=== PATIENT | female | born 1990 | race Caucasian/White ===

== ENCOUNTER 2022-07-17 18:14 | Inpatient (IN) ==
[2022-07-17] MEDS ORDERED: NS 1,000 ML IV 1,000 ML IV ONE ×3 (19:04→22:58)
--- NOTE | 2022-07-17 19:04 | DR.GENAD ---
HPI <Donnie Mclaughlin - Last Filed: 07/22/22 08:27> Time Seen Time Seen by Provider: 07/17/22 19:04 Complaint/Symptoms Chief Complaint Doctors Comments: 31 y/o female, ill since yesterday. Was exposed to flu recently. Started with sore throat, generalized body aches yesterday. + worsened today. + nausea, vomiting, + weakness, decreased urination. Having diffuse pain. + lightheaded, weak, dizziness. Nurses notes reviewed Nurses Notes Review: Yes Source History Provided: Patient Mode of Arrival Mode of Arrival: Ambulatory PMH <Donnie Mclaughlin - Last Filed: 07/22/22 08:27> PMH Past Medical History: Anemia Past Medical History Comment: distant h/o drug abuse Past Surgical History: Yes Family History Family Medical History: Cancer Social History Does patient currently use any type of tobacco product: No Alcohol Use: None Do you use any recreational Drugs:: No (hx) ROS <Donnie Mclaughlin - Last Filed: 07/22/22 08:27> Review of Systems Constitutional: Chills, Fever, Malaise and Weakness Eyes: No Symptoms Reported ENTM: Nose Congestion and Throat Pain Respiratoy: No Symptoms Reported Cardiovascular: No Symptoms Reported Gastrointestinal/Abdominal: Nausea and Vomiting Genitourinary: Other (decreased urination) Neurological: Weakness and Dizziness Musculoskeletal: Muscle Pain Integumentary: No Symptoms Reported Hematologic/Lymphatic: No Symptoms Reported Psychiatric: No Symptoms Reported All Other Systems: Reviewed and Negative PE <Donnie Mclaughlin - Last Filed: 07/22/22 08:27> Vital Signs Vitals: Temperature 98.7 F Pulse Rate 103 Respiratory Rate 16 Blood Pressure 81/41 O2 Sat by Pulse Oximetry 99 General General Appearance: Alert and In No Apparent Distress Eyes Eye exam: PERRL, EOMI and Other (+ pale palpebral conjunctivae) ENT ENT Exam: Other (dry tongue) Neck Neck Exam: Normal Inspection and Full ROM; negative Tenderness Respiratory Respiratory Exam: Normal Lung Sounds Bilat; negative Accessory Muscle Use or Respiratory Distress Cardiovascular Cardiovascular Exam: Regular Rate, Normal Rhythm, Tachycardia and Normal Heart Sounds Abdominal Exam Abdominal Exam: Normal Bowel Sounds and Soft; negative Tenderness, Guarding or Rebound Extremities Extremities Exam: Normal Inspection Neurologic Neurological Exam: Alert, Oriented X3 and CN II-XII Intact; negative Motor Senso ry Deficit Psychiatric Psychiatric Exam: Normal Affect Skin Skin Exam: Warm and Dry <Kathy Vic - Last Filed: 07/18/22 06:00> Vital Signs Vitals: Temperature 98.7 F Pulse Rate 103 Respiratory Rate 16 Blood Pressure 81/41 O2 Sat by Pulse Oximetry 99 MDM <Donnie Mclaughlin - Last Filed: 07/22/22 08:27> Differential Diagnosis Differential Diagnosis: flu, dehydration, anemia COURSE <Donnie Mclaughlin - Last Filed: 07/22/22 08:27> Treatment Treatment: 31 y/o female ill since yesterday. Probably flu clinically. + low BP on arrival. Looks anemic as well. W/u initiated. Very difficult IV stick, tough to thread. One obtained, but c/o burning. Consulted for line placement with anesthesia. Pt will be signed over to my relief physician. <Kathy Ho - Last Filed: 07/18/22 06:00> Treatment Treatment: 31 y/o female ill since yesterday. Probably flu clinically. + low BP on arrival. Looks anemic as well. W/u initiated. Very difficult IV stick, tough to thread. One obtained, but c/o burning. Consulted for line placement with anesthesia. Pt will be signed over to my relief physician. [address] Mclaughlin; resting quietly; remains hypotensive with acute vs chronic renal failure; pt says she does not see doctor regularly; needs to be admitted Critical Care Notes Total Time (mins): 30 Critical Diagnosis: sepsis, dehydration, hypotension, arf, anemia Critical Interventions: central line, fluids, zosyn, bc x 2, labs, coordination of admission with admitting doctor ROR <Donnie Mclaughlin - Last Filed: 07/22/22 08:27> Labs Reviewed Result Diagrams: 07/19/22 04:20 07/19/22 04:20 Laboratory: 07/17/22 23:00 Blood Blood Culture - Preliminary WBC 11.0 X10^3/uL (3.6-10.0) H 07/17/22 20:28 RBC 3.60 X10^6/uL (3.5-5.4) 07/17/22 20:28 Hgb 10.7 g/dL (12.0-16.0) L 07/17/22 20:28 Hct 30.4 % (36.0-47.0) L 07/17/22 20: MCV 84.6 fL (80.0-100.0) 07/17/22: MCH 29.8 pg (27.0-34.0) 07/17/22: MCHC 35.2 g/dL (33.0-35.0) H 07/17/22: RDW 14.9 % (11.6-16.5) 07/17/22 Plt Count 127 X10^3/uL (150.0-450.0) L 07/17/22 Plt Count Comment Decreased (ADEQUATE) A 07/17/22 MPV 9.4 fL (7.4-11.0) 07/17/22 Neut % (Auto) 93.6 % (42.0-75.0) H 07/17/22 Lymph % (Auto) 1.5 % (21.0-51.0) L 07/17/22 [place] % (Auto) 1.6 % (0.0-13.0) 07/17/22: Eos % (Auto) 3.1 % (0.9-2.9) H 07/17/22: Baso % (Auto) 0.2 % (0.2-1.0) 07/17/22: Neut # (Auto) 10.3 x10^3/uL (2.2-4.8) H 07/17/22: Lymph # (Auto) 0.2 X10^3/uL (1.3-2.9) L 07/17/22: [place] # (Auto) 0.2 x10^3/uL (0.3-0.8) L 07/17/22: Eos # (Auto) 0.3 x10^3/uL (0.0-0.2) H 07/17/22: Baso # (Auto) 0.0 X10^3/uL (0.0-0.1) 07/17/22: Absolute Nucleated RBC 0.0 /100WBC 07/17/22 Total Counted 100 07/17/22 Neutrophils % (Manual) 85 % (39-76) H 07/17/22 20: Lymphocytes % (Manual) 2 % (13-43) L 07/17/22 20: Monocytes % (Manual) 8 % (4-9) 07/17/22 20: Eosinophils % (Manual) 5 % (0-6) 07/17/22 20: Plt Morphology Comment Normal (NORMAL) 07/17/22: RBC Morphology Normal (NORMAL) 07/17/22: Sodium 130 mmol/L (136-145) L 07/17/22 20: Corrected Sodium TNP 07/17/22: Potassium 3.8 mmol/L (3.5-5.1) 07/17/22: Chloride 92 mmol/L (98-107) L 07/17/22: Carbon Dioxide 23.9 mmol/L (21-32) 07/17/22: BUN 64 mg/dL (7-18) H 07/17/22: Creatinine 5.61 mg/dL (0.55-1.02) H 07/17/22: Est GFR (MDRD) Af Amer 11 (>60) L 07/17/22: Est GFR (MDRD) Non-Af 9 (>60) L 07/17/22: Glucose 81 mg/dL (65-99) 07/17/22: Lactic Acid 3.5 mmol/L (0.4-2.0) H 07/17/22 23:00 Calcium 7.5 mg/dL (8.5-10.1) L 07/17/22: Corrected Calcium 8.9 mg/dL (8.5-10.1) 07/17/22: Total Bilirubin 2.70 mg/dL (0.2-1.0) H 07/17/22: AST 20 Units/L (15-37) 07/17/22: ALT 42 Units/L (12-78) 07/17/22 20: Alkaline Phosphatase 127 Units/L (46-116) H 07/17/22 20: Total Protein 5.7 g/dL (6.4-8.2) L 07/17/22: Albumin 2.2 g/dL (3.4-5.0) L 07/17/22 20: Globulin 3.5 g/dL (2.5-4.5) 07/17/22 20: Albumin/Globulin Ratio 0.6 Ratio (1.1-2.1) L 07/17/22: Lipase 11 Units/L (73-393) L 07/17/22 20: SARS-CoV-2 (PCR) Negative (NEGATIVE) 07/17/22 Influenza Type A (PCR) Negative (NEGATIVE) 07/17/22 Influenza Type B (PCR) Negative (NEGATIVE) 07/17/22: RSV (PCR) Negative (NEGATIVE) 07/17/22 S. pyogenes (TEM-PCR) Not detected (NOT DETECT) 07/17/22 <Kathy Ho - Last Filed: 07/18/22 06:00> Labs Reviewed Laboratory: 07/17/22 23:00 Blood Blood Culture - Preliminary WBC 11.0 X10^3/uL (3.6-10.0) H 07/17/22: RBC 3.60 X10^6/uL (3.5-5.4) 07/17/22: Hgb 10.7 g/dL (12.0-16.0) L 07/17/22: Hct 30.4 % (36.0-47.0) L 07/17/22: MCV 84.6 fL (80.0-100.0) 07/17/22: MCH 29.8 pg (27.0-34.0) 07/17/22: MCHC 35.2 g/dL (33.0-35.0) H 07/17/22: RDW 14.9 % (11.6-16.5) 07/17/22: Plt Count 127 X10^3/uL (150.0-450.0) L 07/17/22 Plt Count Comment Decreased (ADEQUATE) A 07/17/22 MPV 9.4 fL (7.4-11.0) 07/17/22: Neut % (Auto) 93.6 % (42.0-75.0) H 07/17/22 20: Lymph % (Auto) 1.5 % (21.0-51.0) L 07/17/22 20: [place] % (Auto) 1.6 % (0.0-13.0) 07/17/22 20: Eos % (Auto) 3.1 % (0.9-2.9) H 07/17/22 20: Baso % (Auto) 0.2 % (0.2-1.0) 07/17/22: Neut # (Auto) 10.3 x10^3/uL (2.2-4.8) H 07/17/22 20: Lymph # (Auto) 0.2 X10^3/uL (1.3-2.9) L 07/17/22: [place] # (Auto) 0.2 x10^3/uL (0.3-0.8) L 07/17/22 20: Eos # (Auto) 0.3 x10^3/uL (0.0-0.2) H 07/17/22 20: Baso # (Auto) 0.0 X10^3/uL (0.0-0.1) 07/17/22: Absolute Nucleated RBC 0.0 /100WBC 07/17/22 Total Counted 100 07/17/22 20: Neutrophils % (Manual) 85 % (39-76) H 07/17/22 20: Lymphocytes % (Manual) 2 % (13-43) L 07/17/22: Monocytes % (Manual) 8 % (4-9) 07/17/22: Eosinophils % (Manual) 5 % (0-6) 07/17/22: Plt Morphology Comment Normal (NORMAL) 07/17/22 RBC Morphology Normal (NORMAL) 07/17/22 20: Sodium 130 mmol/L (136-145) L 07/17/22: Corrected Sodium TNP 07/17/22 Potassium 3.8 mmol/L (3.5-5.1) 07/17/22 20: Chloride 92 mmol/L (98-107) L 07/17/22: Carbon Dioxide 23.9 mmol/L (21-32) 07/17/22 20: BUN 64 mg/dL (7-18) H 07/17/22: Creatinine 5.61 mg/dL (0.55-1.02) H 07/17/22: Est GFR (MDRD) Af Amer 11 (>60) L 07/17/22: Est GFR (MDRD) Non-Af 9 (>60) L 07/17/22: Glucose 81 mg/dL (65-99) 07/17/22: Lactic Acid 3.5 mmol/L (0.4-2.0) H 07/17/22 23:00 Calcium 7.5 mg/dL (8.5-10.1) L 07/17/22: Corrected Calcium 8.9 mg/dL (8.5-10.1) 07/17/22 Total Bilirubin 2.70 mg/dL (0.2-1.0) H 07/17/22: AST 20 Units/L (15-37) 07/17/22: ALT 42 Units/L (12-78) 07/17/22: Alkaline Phosphatase 127 Units/L (46-116) H 07/17/22: Total Protein 5.7 g/dL (6.4-8.2) L 07/17/22: Albumin 2.2 g/dL (3.4-5.0) L 07/17/22: Globulin 3.5 g/dL (2.5-4.5) 07/17/22 Albumin/Globulin Ratio 0.6 Ratio (1.1-2.1) L 07/17/22: Lipase 11 Units/L (73-393) L 07/17/22: SARS-CoV-2 (PCR) Negative (NEGATIVE) 07/17/22 Influenza Type A (PCR) Negative (NEGATIVE) 07/17/22 Influenza Type B (PCR) Negative (NEGATIVE) 07/17/22: RSV (PCR) Negative (NEGATIVE) 07/17/22 S. pyogenes (TEM-PCR) Not detected (NOT DETECT) 07/17/22 XRAY XRAY Interpreted by: Radiologist X-ray Results: pcxr: No focal infiltrate or effusion. Right central line in situ. Opioid <Donnie Arnoldo - Last Filed: 07/22/22 08:27> Opioid Risk Tool Age (Edgar box if 16-45): Yes History of Preadolescent Sexual Abuse: No Total: 1 Total Score Risk Category: Low Risk Copyright: Sebastian KAUFMAN predicting aberrant behaviors <Kathy Ho - Last Filed: 07/18/22 06:00> Opioid Risk Tool Total: 1 Total Score Risk Category: Low Risk Discharge Plan Diagnosis Discharge Problem: Acute dehydration, Acute hypotension, Acute renal failure, Acute hyponatremia, Anemia, Thrombocytopenia, Flu-like symptoms, Sepsis Discharge Plan Patient Disposition: 09 ADMITTED INPATIENT Condition: Stable Orders to Discharge Patient Discharge Orders: Discharge by Transfer to Outside Facility (Routine); Ordered 07/19/22 Ordered By: WENDY PALMA
[2022-07-17] MEDS ORDERED: NS 1,000 ML IV 1,000 ML ONE ×3 (19:23→23:00)
[2022-07-17 20:52] LABS: BASOPHILS % (AUTO) 0.2 % (0.2-1.0); EOSINOPHILS # (AUTO) 0.3 x10^3/uL (0.0-0.2); EOSINOPHILS % (AUTO) 3.1 % (0.9-2.9); HEMATOCRIT 30.4 % (36.0-47.0); HEMOGLOBIN 10.7 g/dL (12.0-16.0); LYMPHOCYTES # (AUTO) 0.2 X10^3/uL (1.3-2.9); LYMPHOCYTES % (AUTO) 1.5 % (21.0-51.0); MEAN CORPUSCULAR HEMOGLOBIN 29.8 pg (27.0-34.0); MEAN CORPUSCULAR HGB CONC 35.2 g/dL (33.0-35.0); MEAN CORPUSCULAR VOLUME 84.6 fL (80.0-100.0); MEAN PLATELET VOLUME 9.4 fL (7.4-11.0); MONOCYTES # (AUTO) 0.2 x10^3/uL (0.3-0.8); MONOCYTES % (AUTO) 1.6 % (0.0-13.0); NEUTROPHILS # (AUTO) 10.3 x10^3/uL (2.2-4.8); NEUTROPHILS % (AUTO) 93.6 % (42.0-75.0); RED CELL DISTRIBUTION WIDTH 14.9 % (11.6-16.5)
[2022-07-17 20:56] LABS: ALANINE AMINOTRANSFERASE 42 Units/L (12-78); ALBUMIN 2.2 g/dL (3.4-5.0); ALKALINE PHOSPHATASE 127 Units/L (46-116); ASPARTATE AMINO TRANSFERASE 20 Units/L (15-37); BLOOD UREA NITROGEN 64 mg/dL (7-18); CALCIUM 7.5 mg/dL (8.5-10.1); CARBON DIOXIDE 23.9 mmol/L (21-32); CHLORIDE 92 mmol/L (98-107); COR CA(FOR HYPOALB) 8.9 mg/dL (8.5-10.1); CREATININE 5.61 mg/dL (0.55-1.02); LIPASE 11 Units/L (73-393); SODIUM 130 mmol/L (136-145); TOTAL PROTEIN 5.7 g/dL (6.4-8.2); eGFR NON BLACK RACES 9 (>60)
[2022-07-17 21:02] LABS: PLATELET MORPHOLOGY COMMENT NORMAL (NORMAL)
--- NOTE | 2022-07-17 21:08 | RAD ---
HISTORYCENTRAL LINE PLACEMENTSTUDYCHEST, 1 VIEWCOMPARISONNone.TECHNIQUEA single frontal view of the chest was obtained.FINDINGSThere is a right central line with its tip overlying the expected location of the superior vena cava. The heart is normal in size. There is no focal infiltrate. There is no effusion. There is no pneumothorax. The osseous structures are intact.IMPRESSIONNo focal infiltrate or effusion.Right central line in situ.Electronically signed by: Kaitlyn Calloway (Jul 17, 2022 21:06:25)
[2022-07-17 21:13] LABS: STREP A BY PCR NOT DETECTED (NOT DETECT)
[2022-07-17] MEDS ORDERED: ZOFRAN INJ 4 MG VIAL IVP PRN (23:06)
[2022-07-17] MEDS ORDERED: TYLENOL 500 MG TAB EXTRA STRENGTH PO PRN (23:06)
[2022-07-18 00:52] VITALS: BMI 24.0
[2022-07-18] MEDS ORDERED: NS 1,000 ML IV 1,000 ML IV ONE ×5 (01:03→23:15)
[2022-07-18] MEDS ORDERED: NS 1,000 ML IV 2,000 ML ONE (01:06)
[2022-07-18] MEDS: NS 1,000 ML IV 1,000 ML IV SCH ×3 (01:19→20:37)
[2022-07-18] MEDS: ZOSYN VIAL 3.375 GRAMS 3.375 G in NS 100 ML IV 100 ML IV SCH ×3 (01:19→22:19)
[2022-07-18 05:34] LABS: BASOPHILS % (AUTO) 0.2 % (0.2-1.0); EOSINOPHILS # (AUTO) 0.3 x10^3/uL (0.0-0.2); EOSINOPHILS % (AUTO) 3.9 % (0.9-2.9); HEMATOCRIT 27.5 % (36.0-47.0); HEMOGLOBIN 9.5 g/dL (12.0-16.0); LYMPHOCYTES # (AUTO) 0.2 X10^3/uL (1.3-2.9); LYMPHOCYTES % (AUTO) 2.5 % (21.0-51.0); MEAN CORPUSCULAR HEMOGLOBIN 29.5 pg (27.0-34.0); MEAN CORPUSCULAR HGB CONC 34.5 g/dL (33.0-35.0); MEAN CORPUSCULAR VOLUME 85.6 fL (80.0-100.0); MEAN PLATELET VOLUME 9.6 fL (7.4-11.0); MONOCYTES # (AUTO) 0 x10^3/uL (0.3-0.8); MONOCYTES % (AUTO) 0.5 % (0.0-13.0); NEUTROPHILS # (AUTO) 7.1 x10^3/uL (2.2-4.8); NEUTROPHILS % (AUTO) 92.9 % (42.0-75.0); RED BLOOD COUNT 3.21 X10^6/uL (3.5-5.4); RED CELL DISTRIBUTION WIDTH 14.4 % (11.6-16.5); WHITE BLOOD COUNT 7.6 X10^3/uL (3.6-10.0)
[2022-07-18 05:46] LABS: ALANINE AMINOTRANSFERASE 32 Units/L (12-78); ALBUMIN 1.8 g/dL (3.4-5.0); ALKALINE PHOSPHATASE 111 Units/L (46-116); ASPARTATE AMINO TRANSFERASE 17 Units/L (15-37); BLOOD UREA NITROGEN 66 mg/dL (7-18); CALCIUM 6.4 mg/dL (8.5-10.1); CARBON DIOXIDE 16.5 mmol/L (21-32); CHLORIDE 100 mmol/L (98-107); COR CA(FOR HYPOALB) 8.2 mg/dL (8.5-10.1); CREATININE 5.26 mg/dL (0.55-1.02); SODIUM 134 mmol/L (136-145); TOTAL PROTEIN 4.8 g/dL (6.4-8.2); eGFR NON BLACK RACES 10 (>60)
[2022-07-18 06:00] LABS: BAND NEUTROPHILS % 10 % (0-10)
[2022-07-18 06:01] LABS: BURR CELLS PRESENT; PLATELET MORPHOLOGY COMMENT NORMAL (NORMAL)
[2022-07-18] MEDS: MORPHINE SULFATE INJ 4 MG IVP PRN ×3 (09:55→17:43)
[2022-07-18 10:27] LABS: BILIRUBIN,URINE 1+ (NEGATIVE); BLOOD/HEMOGLOBIN,URINE 3+ (NEGATIVE); GLUCOSE, URINE 1+ (NEGATIVE); KETONES,URINE 1+ (NEGATIVE); LEUKOCYTE ESTERASE ,URINE 3+ (NEGATIVE); NITRITES,URINE NEGATIVE (NEGATIVE); PROTEIN,URINE 3+ (NEGATIVE); UROBILINOGEN,URINE 1+ (NORMAL)
[2022-07-18 10:40] LABS: APPEARANCE,URINE HAZY (CLEAR); BACTERIA,URINE TRACE /HPF (NEGATIVE); COLOR,URINE AMBER (YELLOW); SQUAMOUS EPITHELIAL CELL,UR MODERATE /HPF (NEGATIVE); TRANSITIONAL EPI CELLS,URINE FEW /HPF (NEGATIVE)
--- NOTE | 2022-07-18 13:48 | US ---
HISTORYAcute renal failureSTUDYRENAL USCOMPARISONNone available.TECHNIQUEMultiple diez scale and color flow Doppler images of the kidneys were obtained.The bladder is decompressed by an associated Kerns catheter (and not well evaluated).FINDINGSThe right kidney is normal in echotexture and size. The right kidney measures 14 x 6 cm. No focal mass, hydronephrosis, or stones identified.The left kidney is unremarkable in its echotexture and size. The left kidney measures 14 x 6 cm.No focal mass, hydronephrosis, or stone can be seen within the left kidney.IMPRESSIONUnremarkable evaluation of the kidneys.Electronically signed by: FRANCINE DUFFY III (Jul 18, 2022 13:46:48)
--- NOTE | 2022-07-18 14:10 | DR.H&P ---
H&P History & Physical for Day of: H&P Date: 07/18/22 Chief Complaint Chief Complaint: Sore throat, generalized body aches with nausea and vomiting associated with weakness decreased urination. Allergies Allergies Allergy/AdvReac Type Severity Reaction Status Date / Time No Known Drug Allergies Allergy Verified 07/18/22 01:28 History of Present Illness History of Present Illness: This is a 31-year-old white female who presented to the [facility] emergency department with a chief complaint of sore throat with generalized body aches starting yesterday. She reports being around somebody recently with the flu. She has nausea and vomiting with generalized weakness. She also reports decreased urination and having diffuse pain from her feet all the way to her head. She feels lightheaded and dizzy with generalized weakness. Work-up in the emergency department revealed she had a UTI along with acute renal failure with a creatinine greater than 5. Fair amount of IV fluid in the emergency department and she still did not urinate. Let her go ahead and admit her for her acute renal failure and to treat her with IV Zosyn for her UTI. This morning she also reports of having white-colored stool in the nursing report inserting Kerns catheter but not able to get much urine back as well. She is noted to be anemic and also have thrombocytopenia with a creatinine of 5.26 this morning from 5.86 yesterday in the ER. I ordered a renal ultrasound earlier today and it came back as normal for each kidney. Her UDS was positive for amphetamines. Past Medical History Past Medical History: Anemia Past Surgical History Surgical History: METAL[employer]ING [employer] Surgery Family History Family Medical History: Cancer Social History Does patient currently use any type of tobacco product: Yes Have you used tobacco products in the last 12 months: Yes Type of Tobacco Use: Cigarettes Does any household member use tobacco: Yes Alcohol Use: None Drug Use: None Medications Home Medications: No Known Drug Allergies Allergy (Verified 07/18/22 01:28) CONTINUE taking the following medications NK 07/18/22 [History] Labs Result Diagrams: 07/18/22 05:00 07/18/22 05:00 Labs: Laboratory WBC 7.6 X10^3/uL (3.6-10.0) 07/18/22 05:00 RBC 3.21 X10^6/uL (3.5-5.4) L 07/18/22 05:00 Hgb 9.5 g/dL (12.0-16.0) L 07/18/22 05:00 Hct 27.5 % (36.0-47.0) L 07/18/22 05:00 MCV 85.6 fL (80.0-100.0) 07/18/22 05:00 MCH 29.5 pg (27.0-34.0) 07/18/22 05:00 MCHC 34.5 g/dL (33.0-35.0) 07/18/22 05:00 RDW 14.4 % (11.6-16.5) 07/18/22 05:00 Plt Count 85 X10^3/uL (150.0-450.0) L 07/18/22 05:00 Plt Count Comment Decreased (ADEQUATE) A 07/18/22 05:00 MPV 9.6 fL (7.4-11.0) 07/18/22 05:00 Neut % (Auto) 92.9 % (42.0-75.0) H 07/18/22 05:00 Lymph % (Auto) 2.5 % (21.0-51.0) L 07/18/22 05:00 [place] % (Auto) 0.5 % (0.0-13.0) 07/18/22 05:00 Eos % (Auto) 3.9 % (0.9-2.9) H 07/18/22 05:00 Baso % (Auto) 0.2 % (0.2-1.0) 07/18/22 05:00 Neut # (Auto) 7.1 x10^3/uL (2.2-4.8) H 07/18/22 05:00 Lymph # (Auto) 0.2 X10^3/uL (1.3-2.9) L 07/18/22 05:00 [place] # (Auto) 0 x10^3/uL (0.3-0.8) L 07/18/22 05:00 Eos # (Auto) 0.3 x10^3/uL (0.0-0.2) H 07/18/22 05:00 Baso # (Auto) 0.0 X10^3/uL (0.0-0.1) 07/18/22 05:00 Absolute Nucleated RBC 0.0 /100WBC 07/18/22 05:00 Total Counted 100 07/18/22 05:00 Neutrophils % (Manual) 80 % (39-76) H 07/18/22 05:00 Band Neutrophils % 10 % (0-10) 07/18/22 05:00 Lymphocytes % (Manual) 4 % (13-43) L 07/18/22 05:00 Monocytes % (Manual) 1 % (4-9) L 07/18/22 05:00 Eosinophils % (Manual) 5 % (0-6) 07/18/22 05:00 Plt Morphology Comment Normal (NORMAL) 07/18/22 05:00 RBC Morphology Abnormal (NORMAL) A 07/18/22 05:00 [place] Cells Present 07/18/22 05:00 Sodium 134 mmol/L (136-145) L 07/18/22 05:00 Corrected Sodium TNP 07/18/22 05:00 Potassium 3.8 mmol/L (3.5-5.1) 07/18/22 05:00 Chloride 100 mmol/L (98-107) 07/18/22 05:00 Carbon Dioxide 16.5 mmol/L (21-32) L 07/18/22 05:00 BUN 66 mg/dL (7-18) H 07/18/22 05:00 Creatinine 5.26 mg/dL (0.55-1.02) H 07/18/22 05:00 Est GFR (MDRD) Af Amer 12 (>60) L 07/18/22 05:00 Est GFR (MDRD) Non-Af 10 (>60) L 07/18/22 05:00 Glucose 68 mg/dL (65-99) 07/18/22 05:00 Lactic Acid 2.7 mmol/L (0.4-2.0) H 07/18/22 05:00 Calcium 6.4 mg/dL (8.5-10.1) L 07/18/22 05:00 Corrected Calcium 8.2 mg/dL (8.5-10.1) L 07/18/22 05:00 Total Bilirubin 2.60 mg/dL (0.2-1.0) H 07/18/22 05:00 AST 17 Units/L (15-37) 07/18/22 05:00 ALT 32 Units/L (12-78) 07/18/22 05:00 Alkaline Phosphatase 111 Units/L (46-116) 07/18/22 05:00 Total Protein 4.8 g/dL (6.4-8.2) L 07/18/22 05:00 Albumin 1.8 g/dL (3.4-5.0) L 07/18/22 05:00 Globulin 3.0 g/dL (2.5-4.5) 07/18/22 05:00 Albumin/Globulin Ratio 0.6 Ratio (1.1-2.1) L 07/18/22 05:00 Lipase 11 Units/L (73-393) L 07/17/22 20:28 Specimen Type Catherized urine 07/18/22 10:05 Urine Color [place] (YELLOW) 07/18/22 10:05 Urine Appearance Hazy (CLEAR) 07/18/22 10:05 Urine pH 5.0 (5.0 - 8.0) 07/18/22 10:05 Ur Specific [place] 1.020 (1.000-1.030) 07/18/22 10:05 Urine Protein 3+ (NEGATIVE) 07/18/22 10:05 Urine Glucose (UA) 1+ (NEGATIVE) 07/18/22 10:05 Urine Ketones 1+ (NEGATIVE) 07/18/22 10:05 Urine Blood 3+ (NEGATIVE) 07/18/22 10:05 Urine Nitrite Negative (NEGATIVE) 07/18/22 10:05 Urine Bilirubin 1+ (NEGATIVE) 07/18/22 10:05 Urine Urobilinogen 1+ (NORMAL) 07/18/22 10:05 Ur Leukocyte Esterase 3+ (NEGATIVE) 07/18/22 10:05 Urine RBC 5-10 /HPF (0-3) A 07/18/22 10:05 Urine WBC 30-50 /HPF (0-5) A 07/18/22 10:05 Ur Squamous Epith Cells Moderate /HPF (NEGATIVE) 07/18/22 10:05 Ur Transition Epith Cell Few /HPF (NEGATIVE) 07/18/22 10:05 Amorphous Sediment 2+ /HPF (NEGATIVE) 07/18/22 10:05 Urine Bacteria Trace /HPF (NEGATIVE) 07/18/22 10:05 Ur Culture Indicated? Yes/culture set up 07/18/22 10:05 Urine Opiates Screen Negative (NEG=<300) 07/18/22 10:05 Urine Methadone Screen Negative (NEG=<300) 07/18/22 10:05 Ur Barbiturates Screen Negative (NEG=<200) 07/18/22 10:05 Ur Phencyclidine Scrn Negative (NEG=<25) 07/18/22 10:05 Ur Amphetamines Screen Positive (NEG=<1000) A 07/18/22 10:05 U Benzodiazepines Scrn Negative (NEG=<200) 07/18/22 10:05 Urine Cocaine Screen Negative (NEG=<300) 07/18/22 10:05 U Marijuana (THC) Screen Negative (NEG=<50) 07/18/22 10:05 SARS-CoV-2 (PCR) Negative (NEGATIVE) 07/17/22 20:35 Influenza Type A (PCR) Negative (NEGATIVE) 07/17/22 20:35 Influenza Type B (PCR) Negative (NEGATIVE) 07/17/22 20:35 RSV (PCR) Negative (NEGATIVE) 07/17/22 20:35 S. pyogenes (TEM-PCR) Not detected (NOT DETECT) 07/17/22 20:35 Review of Systems Constitutional: Weakness and Malaise Eyes: No Symptoms Reported ENT: No Symptoms Reported Respiratory: No Symptoms Reported and Cough Cardiovascular: No Symptoms Reported Gastrointestinal: Nausea and Vomiting Genitourinary: Retention Musculoskeletal: No Symptoms Reported Skin: No Symptoms Reported Neurological: No Symptoms Reported Physical Exam Vital Signs: Temperature 97.7 F Pulse Rate 104 Respiratory Rate 25 Blood Pressure 92/57 O2 Sat by Pulse Oximetry 100 Oriented: Normal, Time and Person Eyes: Normal Ear: Normal Nose: Normal Throat: Normal Respiratory: Clear Throughout Cardiovascular: Normal Palpation: Normal Tenderness: Normal Skin: Normal Musculoskeletal: Normal Psychiatric: Normal Mood Description: Calm Affect: Normal Speech Pattern: Clear and Appropriate Assessment/Plan (1) Acute renal failure: Status: Acute Plan: IV hydration with IV normal saline. I will give her a bolus of normal saline this morning consisting of 1 L. I will also have the ICU nurses place a Kerns catheter. (2) Acute hyponatremia: Status: Acute Plan: IV normal saline fluid (3) Anemia: Status: Acute (4) Thrombocytopenia: Status: Acute Plan: Repeat CBC in a.m. (5) Flu-like symptoms: Status: Acute (6) Amphetamine abuse: Status: Acute Plan: Discuss dangers of amphetamine abuse. (7) Lactic acid increased: Status: Acute Plan: Patient does have a elevated lactic acid. She could possibly be se ptic. Follow-up blood cultures and continue her on empiric IV Zosyn. Review H&P Reviewed: Yes Patient was examined?: Yes
[2022-07-18] MEDS ORDERED: LR 1,000 ML IV 1,000 ML IV ONE (17:30)
[2022-07-18] MEDS: NS 1,000 ML IV 1,000 ML IV ONE (19:54)
[2022-07-18] MEDS ORDERED: NICOTINE PATCH TD SCH (20:00)
[2022-07-19] MEDS ORDERED: NS 1,000 ML IV 1,000 ML IV ONE (00:15)
[2022-07-19] MEDS: NS 1,000 ML IV 1,000 ML IV SCH ×2 (01:40→10:42)
[2022-07-19] MEDS ORDERED: NS IV ONE (02:00)
[2022-07-19] MEDS ORDERED: LASIX IV ONE ×2 (02:00)
[2022-07-19] MEDS: NS 1,000 ML IV 1,000 ML IV ONE (02:00)
[2022-07-19] MEDS ORDERED: LASIX ONE ×2 (02:05→02:09)
[2022-07-19] MEDS ORDERED: NS 250 ML IV 250 ML IV ONE (02:06)
[2022-07-19] MEDS: MORPHINE SULFATE INJ 4 MG IVP PRN ×2 (04:49→08:55)
[2022-07-19 05:17] LABS: BASOPHILS % (AUTO) 0.1 % (0.2-1.0); EOSINOPHILS # (AUTO) 0.5 x10^3/uL (0.0-0.2); EOSINOPHILS % (AUTO) 4.8 % (0.9-2.9); HEMATOCRIT 27.5 % (36.0-47.0); HEMOGLOBIN 9.3 g/dL (12.0-16.0); LYMPHOCYTES # (AUTO) 0.3 X10^3/uL (1.3-2.9); MEAN CORPUSCULAR HEMOGLOBIN 28.8 pg (27.0-34.0); MEAN CORPUSCULAR HGB CONC 33.7 g/dL (33.0-35.0); MEAN CORPUSCULAR VOLUME 85.4 fL (80.0-100.0); MEAN PLATELET VOLUME 10.3 fL (7.4-11.0); MONOCYTES # (AUTO) 0.3 x10^3/uL (0.3-0.8); MONOCYTES % (AUTO) 3.1 % (0.0-13.0); NEUTROPHILS # (AUTO) 9.9 x10^3/uL (2.2-4.8); RED BLOOD COUNT 3.22 X10^6/uL (3.5-5.4); RED CELL DISTRIBUTION WIDTH 15.4 % (11.6-16.5); WHITE BLOOD COUNT 11.1 X10^3/uL (3.6-10.0)
[2022-07-19 05:28] LABS: BILIRUBIN,URINE NEGATIVE (NEGATIVE); BLOOD/HEMOGLOBIN,URINE 5+ (NEGATIVE); GLUCOSE, URINE NEGATIVE (NEGATIVE); KETONES,URINE NEGATIVE (NEGATIVE); LEUKOCYTE ESTERASE ,URINE 2+ (NEGATIVE); NITRITES,URINE NEGATIVE (NEGATIVE); PROTEIN,URINE 3+ (NEGATIVE); UROBILINOGEN,URINE NORMAL (NORMAL)
[2022-07-19 05:29] LABS: ALANINE AMINOTRANSFERASE 21 Units/L (12-78); ALBUMIN 1.4 g/dL (3.4-5.0); ALKALINE PHOSPHATASE 134 Units/L (46-116); ASPARTATE AMINO TRANSFERASE 13 Units/L (15-37); BLOOD UREA NITROGEN 69 mg/dL (7-18); CARBON DIOXIDE 15.5 mmol/L (21-32); CHLORIDE 105 mmol/L (98-107); COR CA(FOR HYPOALB) 7.6 mg/dL (8.5-10.1); CREATININE 5.34 mg/dL (0.55-1.02); SODIUM 136 mmol/L (136-145); TOTAL PROTEIN 4.2 g/dL (6.4-8.2); eGFR NON BLACK RACES 10 (>60)
[2022-07-19 05:43] LABS: CALCIUM 5.5 mg/dL (8.5-10.1)
[2022-07-19 05:51] LABS: APPEARANCE,URINE CLEAR (CLEAR); BACTERIA,URINE NEGATIVE /HPF (NEGATIVE); COLOR,URINE YELLOW (YELLOW); RBC,URINE TNTC /HPF (0-3); SQUAMOUS EPITHELIAL CELL,UR RARE /HPF (NEGATIVE)
[2022-07-19 06:00] LABS: BAND NEUTROPHILS % 9 % (0-10)
[2022-07-19 06:01] LABS: BURR CELLS PRESENT; PLATELET MORPHOLOGY COMMENT NORMAL (NORMAL)
[2022-07-19] MEDS: ZOSYN VIAL 3.375 GRAMS 3.375 G in NS 100 ML IV 100 ML IV SCH (08:17)
[2022-07-19 13:01] VITALS: BP 88/52
== END 2022-07-19 14:07 | disposition short-term general hospital (02) | DRG 683 ==
LOC: ER 18:14 → ICU 23:04
PROVIDERS: ADMIT Family Medicine; ATTEND Family Medicine
DX: N39.0 Urinary tract infection, site not specified; Z20.822 Contact with and (suspected) exposure to COVID-19; R53.1 Weakness; E87.1 Hypo-osmolality and hyponatremia; F15.10 Other stimulant abuse, uncomplicated; D64.89 Other specified anemias; R11.2 Nausea with vomiting, unspecified; R42 Dizziness and giddiness; N17.8 Other acute kidney failure; E87.20 Acidosis, unspecified